=== PATIENT | female | born 1960 | race Caucasian/White ===

== ENCOUNTER 2024-03-12 18:17 | Emergency (ER) | payer OTHER, SELFPAY ==
[2024-03-12 18:26] VITALS: BP 163/85
[2024-03-12 18:44] LABS: % Basophils 0.4 % (0-2); % Eosinophils 0.4 % (0-6); % Immature Granulocytes 0.3 % (0-0.5); % Lymphocytes 22.7 % (20.5-51.1); % Monocytes 5.1 % (1.7-9.3); % Neutrophils 71.1 % (42.2-75.2); Absolute Lymphocytes 1.7 10^3/uL (1.2-3.4); Absolute Monocytes 0.4 10^3/uL (0.1-0.6); Absolute Neutrophils 5.5 10^3/uL (1.4-6.5); Hematocrit 41.2 % (37.0-47.0); Hemoglobin 14.3 g/dL (12.0-16.0); Mean Corp Hgb Conc. 34.7 g/dL (33.0-37.0); Mean Corpuscular Volume 89.4 fL (81.0-99.0); Nucleated Red Blood Cells % 0 %; Platelet Count 218 10^3/uL (130-400); Red Blood Cell Count 4.61 10^6/uL (4.20-5.40); Red Cell Dist. Width 12.2 % (11.5-14.5); White Blood Cell Count 7.7 10^3/uL (4.8-10.8)
[2024-03-12 19:02] LABS: ALT (SGPT) 22 U/L (0-35); AST (SGOT) 33 U/L (14-36); Albumin 4.6 g/dl (3.5-5.0); Alkaline Phosphatase 46 U/L (38-126); Blood Urea Nitrogen 16 mg/dl (7-17); Calcium 9.3 mg/dl (8.4-10.2); Carbon Dioxide 22 mmol/L (22-30); Chloride 112 mmol/L (98-107); Glucose 123 mg/dl (70-99); Sodium 142 mmol/L (135-145); Total Bilirubin 0.4 mg/dl (0.2-1.3); eGFR > 60.00
[2024-03-12 19:07] LABS: Troponin I 0.014 ng/ml
--- NOTE | 2024-03-12 21:24 | ED.GENMED ---
History of Present Illness
General
Chief Complaint: Chest Pain
Time Seen by Provider: 03/12/24 21:24
Travel History
Have you had any contact with someone who has COVID-19?: No
Do you have any symptoms of coronavirus? Fever > 100 degrees, chills, cough, shortness of breath, sore throat, loss of taste or smell, muscle aches, or headache?: No
History of Present Illness
History of Present Illness:
HPI: Patient presents from [facility] with chest discomfort. The symptoms started 2 days ago. She also has some degree of shortness of breath. She does not necessarily have any symptoms currently but does not quite feel right. She
also reports a right sided tooth infection and headache as well. She is a smoker but only takes Synthroid.
EXAM:
GENERAL: Well appearing in no distress
HEENT: Moist oral mucosa
CARDIOVASCULAR: No murmurs, normal heart rate, regular rhythm, No chest wall tenderness
PULMONARY: No respiratory distress, breath sounds are clear and equal
ABDOMEN: Soft with no peritoneal signs, no tenderness
NEUROLOGIC: Excellent strength all extremities, no coordination deficits
PSYCHIATRIC: Appropriate mental status, normal insight and judgement
EXTREMITIES: Nontender, no edema, moves all extremities equally
SKIN: No rash, no lesions
TIME OF INITIAL ENCOUNTER: 9:30 PM
NUMBER AND COMPLEXITY OF PROBLEMS ADDRESSED AT THE ENCOUNTER
� Chronic conditions affecting care: Hypothyroidism, smoker
� Acute Exacerbation and/or Progression of Chronic Illness: This is an acute problem
� Differential Diagnosis includes: Reactive airway disease, ACS, undiagnosed COPD
AMOUNT AND/OR COMPLEXITY OF DATA TO BE REVIEWED AND ANALYZED
� I performed an independent evaluation of and my interpretation is:
EKG: Sinus 79, borderline LVH with ST abnormality and no old to compare.
CT:
X-rays: I personally reviewed chest x-ray and see no acute abnormality
Laboratory Studies: CBC normal, chemistries unremarkable, troponin 0.014
Other:
� Review of other/old records: The patient was seen here diagnosed with pneumonia nearly 6 months ago and states that she improved after she was given antibiotics.
� Clinical information was obtained by an independent historian: None needed
� Prescriptions/Medications Considered but not given:
� Further testing considered but not performed: Consider repeat troponin however symptoms have been ongoing for days
RISK OF COMPLICATIONS AND/OR MORBIDITY OR MORTALITY OF PATIENT MANAGEMENT
� Social determinants of health affecting care: The patient lives at home, she is a smoker
� Discussion with other providers: Discussed EKG with Dr. Howard with outpatient follow-up and likely echo
� Escalation of care including admission/observation vs risk of discharge considered: The patient is had several days of symptoms with an unremarkable troponin. She currently does not have chest discomfort but does just overall
feel unwell. She is hypertensive. There may be a component of reactive airway disease as well she is a long-term smoker. We did try breathing treatment as she is a smoker however she reports no significant change. Her room air sats are normal.
I also recommended strongly to stop smoking.
Phy Exam
Physical Exam
Physical Exam:
See HPI
Scores
Heart Score for Chest Pain Patients
STEMI patient?: Not applicable
Course
Orders/Labs/Results
Orders:
Orders
03/12/24 18:20
ECG [Electrocardiogram (*1)] Urgent
Reason for Study: Chest Pain
EKG- Treatment ONCE
03/12/24 18:39
Complete Blood Count/With Diff Urgent
Comprehensive Metabolic Panel Urgent
Troponin I Urgent
03/12/24 21:31
Ipratropium/Albuterol Sulfate [Duoneb] 3 ml INH R NOW ONE
03/12/24 21:32
CR Chest - 2 Views Urgent
Comment:
Reason For Exam: cp sob
Abnormal Lab Results
03/12/24
18:39
Chloride 112 H mmol/L
(98-107)
Glucose 123 H mg/dl
(70-99)
03/12/24 18:39
03/12/24 18:39
Vital Signs
Initial and Last Documented VS:
Initial Vital Signs
Temp Pulse Resp BP Pulse Ox
98.4 F 74 18 163/85 99
03/12/24 18:26 03/12/24 18:26 03/12/24 18:26 03/12/24 18:26 03/12/24 18:26
Last Documented Vital Signs
Temp Pulse Resp BP Pulse Ox
98.4 F 70 18 122/64 97
03/12/24 18:26 03/12/24 22:10 03/12/24 18:26 03/12/24 22:10 03/12/24 22:10
*Critical Care Note
Total Time (30-74mins, 75-104mins- exclusive of procedures): Not Applicable
ED Attending Note
-
Portions of this chart may have been created with voice recognition software.� Occasional wrong word or��sound alike� substitutions may have occurred due to the inherent limitations of voice recognition software.
Discharge Plan
Departure
Patient Disposition: Home (Routine Discharge)
Date of Disposition: 03/12/24
Time of Disposition: 22:18
Patient with high blood pressure during this ER visit?: Yes
Discharge Problem:
Chest pain
Instructions: Chest Pain CBC Follow Up
Prescriptions:
New
albuterol sulfate 90 mcg/actuation HFA aerosol inhaler
1 - 2 puff inhalation Q6H PRN (Reason: shortness of breath or wheezing) Qty: 8.5 0RF
No Action
doxycycline monohydrate 100 mg capsule
100 mg PO BID 5 Days Qty: 10 0RF
Referrals:
Glenn Gtz MD [Active] - Follow up in 2-3 days
Activity Restrictions/Additional Instructions:
Follow-up with [facility] such as Dr. Gtz. I discussed the EKG findings with Dr. Gtz�he recommends that you follow-up with them as an outpatient and they would likely consider an echo as well. Your initial blood pressure was
high in the 160s/80s however repeat was down to 120s/60s. Return here if worse.
Interventions
Interventions:
*Risk Screen - Suicide Last Done: 03/12/24 18:26
*General Assessment Last Done: 03/12/24 18:26
*Neglect/Abuse Screening Last Done: 03/12/24 18:26
ED- Fall Risk Assessment Last Done: 03/12/24 22:36
*ED COVID-19 Vaccine History Last Done: 03/12/24 18:26
*Nursing Disposition Last Done: 03/12/24 22:36
ED- Cardiac Assessment Last Done: 03/12/24 22:36
Discharge Date and Time
Discharge Date/Time: 03/12/24 22:37
Print Language: POLISH
[2024-03-12] MEDS: DUONEB 3 ML INH (21:44)
[2024-03-12 22:10] VITALS: BP 122/64
== END 2024-03-12 22:37 | disposition home or self-care (01) ==
LOC: EMR 18:17
PROVIDERS: Emergency Medicine; EMERGENCY PHYSICIAN Emergency Medicine; FAMILY PHYSICIAN Family Medicine
DX: R07.89 Other chest pain (principal); R51.9 Headache, unspecified; R06.02 Shortness of breath; K04.7 Periapical abscess without sinus; E03.9 Hypothyroidism, unspecified; F17.200 Nicotine dependence, unspecified, uncomplicated; Z87.01 Personal history of pneumonia (recurrent)
CPT/HCPCS: 99283; 94640; 71046; 80053; 84484; 85025; 93005

== ENCOUNTER → 2024-03-14 16:11 | Outpatient (REF) | payer OTHER, SELFPAY | LOC: RCS 16:11 | PROVIDERS: ATTENDING PHYSICIAN Internal Medicine; FAMILY PHYSICIAN Family Medicine | DX: R94.31 Abnormal electrocardiogram [ECG] [EKG] (principal); R07.9 Chest pain, unspecified; Z72.0 Tobacco use; R06.09 Other forms of dyspnea | CPT/HCPCS: 93306 ==

== ENCOUNTER → 2024-04-20 07:55 | Outpatient (REF) | payer OTHER, SELFPAY | LOC: DHCBC/DCA 07:55 | PROVIDERS: ATTENDING PHYSICIAN Internal Medicine; FAMILY PHYSICIAN Family Medicine | DX: R94.31 Abnormal electrocardiogram [ECG] [EKG] (principal); R07.9 Chest pain, unspecified; Z72.0 Tobacco use; R06.09 Other forms of dyspnea | CPT/HCPCS: 78452; 93017; A9500 ==